=== PATIENT | female | born 1960 | race Caucasian/White ===

== ENCOUNTER 2016-05-24 19:28 | Emergency (ER) | payer MEDICAID ==
[~2016-05-24 19:28] MED LIST: ALBU1AER INH; ASPI81 PO; BENZ1TAB PO; BLOOD GLUCOSE T1 TES; BUSP15TA PO; ENAL10TA PO; FENO50TA PO; GABA600T PO; GLUC1KIT IM; HYDR50 PO; LANTUS2P SQ; LEXA20TA PO; MIRTA15 PO; NOVOLOGP2 SQ; PRAV80TA2 PO; PROC1CRE TOPICAL; ROBA750T PO; TOPA100T11 PO
[2016-05-24 19:31] VITALS: BP 149/114; PULSE 100; RESP 18; O2SAT 96
[2016-05-24] MEDS ORDERED: SODIUM CHLOR 0.9% 1000 ML INJ 1,000 ML IV ONE ×2 (19:34→20:04)
[2016-05-24 19:40] VITALS: RESP 18; O2SAT 95
[2016-05-24] MEDS ORDERED: SODIUM CHLORIDE 0.9% FLUSH 5 ML FLUSH IVF PRN (19:45)
--- NOTE | 2016-05-24 19:46 | PD ---
HPI Chief Complaint: Diabetic Time Seen by Provider: 19:34 Travel History International Travel<30 days: No Contact w/Intl Traveler<30days: No Traveled to known affect area: No History of Present Illness HPI 56-year-old female with history of insulin-dependent diabetes, CAD, brought in by EMS from home for evaluation of elevated blood sugar and feeling dizzy. Symptoms started this evening. The patient reports compliance with her insulin. She feels nauseous and is having some abdominal bloating and epigastric abdominal discomfort. No chest pain or dyspnea. No fevers or chills. No vomiting. PFSH Past Medical History Hx Anticoagulant Therapy: Yes (aspirin) ADD: Yes ADHD: Yes Arthritis: Yes Asthma: No Autoimmune Disease: Yes (FIBROMYALGIA) Bipolar Disorder: Yes Anxiety: Yes (ACUTE ) Depression: Yes (DEPRESSION) Heart Rhythm Problems: No Cardiac Catheterization: Yes (No stents) Cardiovascular Problems: Yes (history atrial flutter) High Cholesterol: Yes Chemotherapy: No Chest Pain: No Congestive Heart Failure: No COPD: No Cerebrovascular Accident: No Coronary Artery Disease: Yes Diabetes: Yes Patient Takes Glucophage: No Diminished Hearing: No Endocrine: Yes Fibromyalgia: Yes Gastrointestinal Disorders: No GERD: No Genitourinary: No Headaches: Yes Hepatitis: Yes (HEP B) Hiatal Hernia: No Hypertension: Yes Immune Disorder: No Implanted Vascular Access Dvce: No Insomnia: Yes Musculoskeletal: Yes Neurologic: Yes (DIABETIC NEUROPATHY) Reproductive: No Respiratory: Yes Integumentary: Yes (MRSA - 2010) Immunizations Current: Yes Migraines: Yes Myocardial Infarction: Yes Pancreatitis: Yes (EARLY ) Radiation Therapy: No Renal Failure: No Seizures: Yes Sleep Apnea: No Thyroid Disease: No Triglycerides - High: Yes Ulcer: No PNEUMOCCOCAL Vaccine (Year): 1 ?: Not Menopausal: Yes : 5 Para: 4 Miscarriage: 1 : 0 Tubal Ligation: Yes Past Surgical History Abdominal Surgery: No AICD: No Arteriovenous Shunt: No Body Medical Devices: HARDWARE IN NECK Cardiac Surgery: No Coronary Artery Bypass Graft: No Ear Surgery: No Endocrine Surgery: No Eye Surgery: No Genitourinary Surgery: No Gynecologic Surgery: Yes (LEEP - HPV POSITIVE. FIBROID REMOVAL) Insulin Pump: No Joint Replacement: No Neurologic Surgery: Yes (C5 AND C6 FUSION) Oral Surgery: No Pacemaker: No Thoracic Surgery: No Tonsillectomy: Yes Other Surgery: Yes (vertebrae) Social History Alcohol Use: Yes Tobacco Use: Yes (trying to quit) Substance Use: No Allergies-Medications (Allergen,Severity, Reaction): Coded Allergies: Penicillin (Verified Allergy, Severe, HIVES, 05/24/16) *MDRO Multi-Drug Resistant Organism (Verified Allergy, Unknown, 05/24/16) MRSA Reported Meds & Prescriptions Reported Meds & Active Scripts Active Blood Glucose Test Strips 1 Franny Franny 1 Ea .ROUTE DIRECTED Test sugar 4 times a day Mirtazapine 15 Mg Tab 15 Mg PO HS Glucagon Emergency Inj Kit (Glucagon (Rdna) Inj Kit) 1 Mg Kit 1 Mg IM ONCE PRN Enalapril (Enalapril Maleate) 10 Mg Tab 10 Mg PO DAILY Robaxin (Methocarbamol) 750 Mg Tab 1,500 Mg PO TID Reported Acyclovir 800 Mg Tab 800 Mg PO DIRECTED Lantus Inj (Insulin Glargine) 1,000 Unit/10 Ml Vial 35 Units SQ Lantus Inj (Insulin Glargine) 1,000 Unit/10 Ml Vial 30 Units SQ AM Novolog Inj (Insulin Aspart) 1,000 Unit/10 Ml Vial 0 SQ DIRECTED Sliding Scale as directed. Latuda (Lurasidone) 80 Mg Tab 80 Mg PO DAILY Tizanidine (Tizanidine HCl) 2 Mg Cap 2 Mg PO TID Aspirin 81 Mg Chew 81 Mg CHEW BID Benztropine (Benztropine Mesylate) 1 Mg Tab 1 Mg PO BID Pravastatin 80 Mg Tab 80 Mg PO DAILY Gabapentin 600 Mg Tab 600 Mg PO TID Topamax (Topiramate) 100 Mg Tab 100 Mg PO BID Tricor (Fenofibrate) 145 Mg Tab 145 Mg PO DAILY Takw with food. Lexapro (Escitalopram Oxalate) 20 Mg Tab 20 Mg PO DAILY Buspar (Buspirone HCl) 15 Mg Tab 15 Mg PO BID Review of Systems Except as stated in HPI: all other systems reviewed are Neg Physical Exam Narrative GENERAL: Well-developed, well-nourished, comfortable, no acute distress. SKIN: Warm and dry. HEAD: Atraumatic. Normocephalic. EYES: Pupils equal and round. No scleral icterus. No injection or drainage. ENT: Mucous membranes pink and dry. NECK: Trachea midline. No JVD. CARDIOVASCULAR: Regular rate and rhythm. RESPIRATORY: No accessory muscle use. Clear to auscultation. Breath sounds equal bilaterally. GASTROINTESTINAL: Abdomen soft, mildly distended, moderate epigastric tenderness , no peritoneal signs. MUSCULOSKELETAL: No obvious deformities. No clubbing. No cyanosis. No edema. NEUROLOGICAL: Awake and alert. No obvious cranial nerve deficits. Motor grossly within normal limits. Normal speech. PSYCHIATRIC: Appropriate mood and affect; insight and judgment normal. Data Data Last Documented VS Vital Signs Date Time Temp Pulse Resp B/P Pulse Ox O2 Delivery O2 Flow Rate FiO2 05/24/16 19:46 18 96 Room Air 05/24/16 19:31 100 149/114 Orders Electrocardiogram (05/24/16 19:34) Complete Blood Count With Diff (05/24/16 19:34) Comprehensive Metabolic Panel (05/24/16 19:34) Beta Hydroxybutyrate (Acetone) (05/24/16 19:34) Urinalysis - C+S If Indicated (05/24/16 19:34) Ecg Monitoring (05/24/16 19:34) Iv Access Insert/Monitor (05/24/16 19:34) Oximetry (05/24/16 19:34) NPO (05/24/16 19:34) Sodium Chlor 0.9% 1000 Ml Inj (Ns 1000 M (05/24/16 19:34) Sodium Chlor 0.9% 1000 Ml Inj (Ns 1000 M (05/24/16 20:04) Sodium Chloride 0.9% Flush (Ns Flush) (05/24/16 19:45) Lipase (05/24/16 19:41) Ckmb (Isoenzyme) Profile (05/24/16 19:41) Troponin I (05/24/16 19:41) Blood Gas Venous (Vbg) (05/24/16 19:42) Ondansetron Inj (Zofran Inj) (05/24/16 21:15) Insulin Human Regular Inj (Novolin R Inj (05/24/16 21:30) Labs Laboratory Tests Test 05/24/16 05/24/16 20:15 20:55 White Blood Count 7.1 TH/MM3 Red Blood Count 5.13 MIL/MM3 Hemoglobin 14.1 GM/DL Hematocrit 41.6 % Mean Corpuscular Volume 81.1 FL Mean Corpuscular Hemoglobin 27.5 PG Mean Corpuscular Hemoglobin 33.9 % Concent Red Cell Distribution Width 13.4 % Platelet Count 237 TH/MM3 Mean Platelet Volume 8.9 FL Neutrophils (%) (Auto) 62.3 % Lymphocytes (%) (Auto) 29.8 % Monocytes (%) (Auto) 5.6 % Eosinophils (%) (Auto) 1.7 % Basophils (%) (Auto) 0.6 % Neutrophils # (Auto) 4.4 TH/MM3 Lymphocytes # (Auto) 2.1 TH/MM3 Monocytes # (Auto) 0.4 TH/MM3 Eosinophils # (Auto) 0.1 TH/MM3 Basophils # (Auto) 0.0 TH/MM3 CBC Comment DIFF FINAL Differential Comment Urine Color LIGHT-YELLOW Urine Turbidity CLEAR Urine pH 5.0 Urine Specific [place] 1.024 Urine Protein NEG mg/dL Urine Glucose (UA) 1000 mg/dL Urine Ketones NEG mg/dL Urine Occult Blood TRACE Urine Nitrite NEG Urine Bilirubin NEG Urine Urobilinogen LESS THAN 2.0 MG/DL Urine Leukocyte Esterase TRACE Urine RBC 5 /hpf Urine WBC 1 /hpf Urine Squamous Epithelial <1 /hpf Cells Urine Mucus FEW /lpf Microscopic Urinalysis Comment CULT NOT INDICATED Sodium Level 133 MEQ/L Potassium Level 4.1 MEQ/L Chloride Level 97 MEQ/L Carbon Dioxide Level 25.1 MEQ/L Anion Gap 11 MEQ/L Blood Urea Nitrogen 18 MG/DL Creatinine 1.20 MG/DL Estimat Glomerular Filtration 46 ML/MIN Rate Random Glucose 353 MG/DL Calcium Level 9.3 MG/DL Total Bilirubin 0.2 MG/DL Aspartate Amino Transf 31 U/L (AST/SGOT) Alanine Aminotransferase 64 U/L (ALT/SGPT) Alkaline Phosphatase 122 U/L Total Creatine Kinase 98 U/L Troponin I LESS THAN 0.02 NG/ML Total Protein 8.1 GM/DL Albumin 4.2 GM/DL Lipase 243 U/L B-Hydroxybutyrate 0.14 MMOL/L Blood Gas Puncture Site Blood Gas Patient Temperature 98.6 Venous Blood pH 7.38 Venous Blood Partial Pressure 39 mmHg CO2 Venous Blood Partial Pressure 57 mmHg O2 Venous Blood HCO3 23 mmol/L Venous Blood Oxygen Saturation 85 % Venous Blood Oxygen Content 13.6 Vol % Venous Blood Base Excess -1.5 mmol/L MDM Medical Decision Making Medical Screen Exam Complete: Yes Emergency Medical Condition: Yes Medical Record Reviewed: Yes Interpretation(s) EKG: Sinus, rate 99, normal axis, normal intervals, no acute ischemic abnormality. Differential Diagnosis DKA, hyperglycemia, pancreatitis, gastritis, hepatobiliary disease Narrative Course Initial vital signs show heart rate 100 which improved to 88 after 2 L of normal saline IV, blood pressure 149/114, pulse ox 96% on room air. CBC is unremarkable. CMP is unremarkable. Beta hydroxybutyrate is 0.14. Cardiac enzymes are negative. Lipase is 243. Venous pH is 7.38. UA shows 1000 glucose, trace occult blood, trace site esterase, negative for ketones, not suggestive of UTI. The patient is not in DKA. Patient was given 2 L normal saline IV and IV Zofran. Repeat fingerstick is 211. Patient is feeling much better. She is stable for discharge home with outpatient follow-up with her primary care physician this week. She was informed on when to return to the emergency department patient verbalizes understanding and agreement with plan. Diagnosis Primary Impression: Hyperglycemia Cedric Brennan MD May 24, 2016 19:46
[2016-05-24] MEDS ORDERED: ASPI81CH CHEW (19:56)
[2016-05-24] MEDS ORDERED: LURA80 PO (20:00)
[2016-05-24] MEDS ORDERED: LANTUS2P SQ ×2 (20:00)
[2016-05-24] MEDS ORDERED: ACYC800T PO (20:00)
[2016-05-24] MEDS ORDERED: NOVOLOGP2 SQ (20:00)
[2016-05-24] MEDS ORDERED: TIZA2CAP3 PO (20:00)
[2016-05-24 20:51] LABS: AUTOMATED NEUTROPHIL # 4.4 TH/MM3 (1.8-7.7); BASOPHIL % 0.6 % (0.0-2.0); EOSINOPHIL # 0.1 TH/MM3 (0-0.4); EOSINOPHIL % 1.7 % (0.0-4.0); HEMATOCRIT 41.6 % (35.0-46.0); HEMO FLAGS DIFF FINAL; LYMPH % 29.8 % (9.0-44.0); LYMPHOCYTE # 2.1 TH/MM3 (1.0-4.8); MEAN CELL VOLUME 81.1 FL (80.0-100.0); MEAN CORPUSCULAR HEMOGLOBIN 27.5 PG (27.0-34.0); MEAN CORPUSCULAR HGB CONC 33.9 % (32.0-36.0); MONO % 5.6 % (0.0-8.0); NEUT % 62.3 % (16.0-70.0); PLATELET COUNT 237 TH/MM3 (150-450); RED BLOOD COUNT 5.13 MIL/MM3 (4.00-5.30); RED CELL DISTRIBUTION WIDTH 13.4 % (11.6-17.2); WHITE BLOOD COUNT 7.1 TH/MM3 (4.0-11.0)
[2016-05-24 20:55] LABS: BLOOD, URINE TRACE (NEG); COMMENT (UR) CULT NOT INDICATED; CULTURE IF INDICATED CULT NOT INDICATED; GLUCOSE,URINE 1000 mg/dL (NEG); KETONE, URINE NEG (NEG); MUCUS URINE FEW /lpf (OCC); NITRITE,URINE NEG (NEG); SQUAMOUS EPITHELIAL CELL URINE <1 /hpf (0-5); URINE COLOR LIGHT-YELLOW (YELLW/STRAW)
[2016-05-24] MEDS ORDERED: ONDANSETRON HCL 4 MG/2 ML VIAL IV PUSH ONE (21:15)
[2016-05-24 21:16] LABS: BLOOD GAS VENOUS BASE EXCESS -1.5 mmol/L (-2-2); BLOOD GAS VENOUS HCO3 23 mmol/L (22-26); BLOOD GAS VENOUS O2 CONTENT 13.6 Vol % (9.0-17.0); BLOOD GAS VENOUS O2 HGB SAT 85 % (70-76); BLOOD GAS VENOUS PCO2 39 mmHg (44-48); BLOOD GAS VENOUS PO2 57 mmHg (35-40); BLOOD GAS VENOUS pH 7.38 (7.360-7.400); CRITICAL VALUE NO; STAT NO; TEMP CORR TO 98.6
[2016-05-24 21:16] LABS: ANION GAP 11 MEQ/L (5-15); AST (GOT) 31 U/L (15-37); BICARBONATE 25.1 MEQ/L (21.0-32.0); BLOOD UREA NITROGEN 18 MG/DL (7-18); CHLORIDE 97 MEQ/L (98-107); GLOMERULAR FILTRATION RATE 46 ML/MIN (>89); POTASSIUM 4.1 MEQ/L (3.5-5.1); SODIUM (NA) 133 MEQ/L (136-145)
[2016-05-24 21:19] LABS: ALKALINE PHOSPHATASE 122 U/L (45-117); ALT (GPT) 64 U/L (10-53); BETA-HYDROXYBUTYRATE 0.14 MMOL/L (0.00-0.39); TOTAL BILIRUBIN ADULT 0.2 MG/DL (0.2-1.0)
[2016-05-24] MEDS ORDERED: INSULIN HUMAN REGULAR 1,000 UNITS/10 ML VIAL SQ ONE (21:30)
[2016-05-24 21:51] LABS: CREATINE KINASE 98 U/L (26-192)
--- NOTE | 2016-05-25 10:39 | EKG ---
Date Performed: 05/24/2016 Time Performed: 20:29:13 PTAGE: 56 years EKG: Sinus rhythm NORMAL ECG PREVIOUS TRACING : 01/23/2015 17.39 DOCTOR: Gavino Salazar Interpretating Date/Time 05/25/2016 10:38:22
[2016-06-06] MEDS ORDERED: NOVOLOGP2 SQ (17:44)
[2016-06-08] MEDS ORDERED: NOVOLOGP2 SQ (08:39)
[2016-06-15] MEDS ORDERED: ONETKIT11 (07:49)
[2016-06-17] MEDS ORDERED: TOPA100T11 PO (13:40)
[2016-06-24] MEDS ORDERED: ONETKIT9 (08:48)
[2016-06-24] MEDS ORDERED: ACYC400T PO (13:44)
[2016-07-15] MEDS ORDERED: TIZA2TAB PO (16:16)
[2016-07-15] MEDS ORDERED: LANTUS2P IM (16:17)
[2016-07-15] MEDS ORDERED: LAMO25CH CHEW (17:09)
[2016-07-18] MEDS ORDERED: NOVOLOGP2 SQ (16:34)
[2016-08-03] MEDS ORDERED: PRAV80TA2 PO (07:02)
[2016-08-03] MEDS ORDERED: ONETKIT9 (07:02)
[2016-08-03] MEDS ORDERED: BLOOD GLUCOSE T1 TES (07:20)
[2016-08-13] MEDS ORDERED: NAPH1DRO EACH EYE (08:09)
[2016-08-17] MEDS ORDERED: NOVOLOGP2 SQ (14:47)
[2016-08-30] MEDS ORDERED: TRIMSOL EACH EYE (07:58)
[2016-09-15] MEDS ORDERED: NOVOLOGP2 SQ (09:20)
[2016-09-15] MEDS ORDERED: LANTUS2P IM (09:20)
[2016-09-15] MEDS ORDERED: GABA600T PO (09:26)
== END 2016-05-24 22:57 | disposition home or self-care (01) ==
LOC: NEPC 19:28
DX: E11.65 Type 2 diabetes mellitus with hyperglycemia (principal); R42 Dizziness and giddiness; R11.0 Nausea; I10 Essential (primary) hypertension; Z72.0 Tobacco use; Z79.4 Long term (current) use of insulin
CPT/HCPCS: 80053; 81001; 82010; 82550; 82805; 83690; 84484; 85025; 93005; 96361; 96374; 99284; J2405; J7030

== ENCOUNTER 2016-06-13 20:18 | Emergency (ER) | payer MEDICAID ==
[~2016-06-13] VITALS: Ht 162.6 cm; Wt 66.0 kg
[~2016-06-13 20:18] MED LIST changes: +ACYC800T PO; -ALBU1AER INH; -ASPI81 PO; +ASPI81CH CHEW; -HYDR50 PO; +LURA80 PO; -PROC1CRE TOPICAL; +TIZA2CAP3 PO
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
[2016-06-13] MEDS ORDERED: SODIUM CHLORIDE 0.9% FLUSH 5 ML FLUSH IVF PRN (20:30)
[2016-06-13] MEDS ORDERED: INSULIN HUMAN REGULAR 1,000 UNITS/10 ML VIAL IV PUSH ONE (20:30)
[2016-06-13] MEDS ORDERED: HYDR50CA PO (20:32)
[2016-06-13] MEDS ORDERED: BUSP15TA PO (20:32)
[2016-06-13 20:48] VITALS: BP 154/71; PULSE 89; RESP 18; TEMP 97.8; O2SAT 98
[2016-06-13] MEDS ORDERED: SODIUM CHLOR 0.9% 1000 ML INJ 1,000 ML IV ONE (20:52)
[2016-06-13 21:02] VITALS: BP 154/71; PULSE 89; RESP 20; TEMP 97.8; O2SAT 98
--- NOTE | 2016-06-13 21:05 | RADHPO ---
EXAM DATE/TIME: 06/13/2016 20:42 [facility] COMPARISON: CHEST SINGLE AP, January 23, 2015, 17:21. INDICATIONS : Cough. MEDICAL HISTORY : Diabetes mellitus type II. Emphysema. SURGICAL HISTORY : None. ENCOUNTER: Initial ACUITY: 1 day PAIN SCORE: 3/10 LOCATION: Bilateral upper chest FINDINGS: A single view of the chest demonstrates the lungs to be symmetrically aerated without evidence of mas s, infiltrate or effusion. The cardiomediastinal contours are unremarkable. Osseous structures are intact. CONCLUSION: No acute disease. No significant change has occurred. Vitaly Bradford MD on June 13, 2016 at 21:04 Board Certified Radiologist. This report was verified electronically.
[2016-06-13 21:06] LABS: AUTOMATED NEUTROPHIL # 4.7 TH/MM3 (1.8-7.7); BASOPHIL % 0.2 % (0.0-2.0); EOSINOPHIL # 0.1 TH/MM3 (0-0.4); EOSINOPHIL % 0.9 % (0.0-4.0); HEMATOCRIT 38.8 % (35.0-46.0); HEMO FLAGS DIFF FINAL; LYMPH % 26.6 % (9.0-44.0); LYMPHOCYTE # 1.9 TH/MM3 (1.0-4.8); MEAN CELL VOLUME 81.5 FL (80.0-100.0); MEAN CORPUSCULAR HEMOGLOBIN 27.7 PG (27.0-34.0); MONO % 7.9 % (0.0-8.0); NEUT % 64.4 % (16.0-70.0); PLATELET COUNT 222 TH/MM3 (150-450); RED BLOOD COUNT 4.77 MIL/MM3 (4.00-5.30); RED CELL DISTRIBUTION WIDTH 12.8 % (11.6-17.2); WHITE BLOOD COUNT 7.3 TH/MM3 (4.0-11.0)
[2016-06-13 21:08] LABS: BLOOD, URINE NEG (NEG); KETONE, URINE NEG (NEG); NITRITE,URINE NEG (NEG)
[2016-06-13 21:12] LABS: GLUCOSE,URINE 1000 OR GREATER mg/dL (NEG)
[2016-06-13 21:14] LABS: CHLORIDE 103 MEQ/L (98-107); SODIUM (NA) 142 MEQ/L (136-145)
[2016-06-13 21:16] LABS: METHOD OF COLLECTION VOIDED; URINE COLOR YELLOW (YELLW/STRAW)
[2016-06-13 21:17] LABS: ANION GAP 10 MEQ/L (5-15); BICARBONATE 29.4 MEQ/L (21.0-32.0); BLOOD UREA NITROGEN 25 MG/DL (7-18); COMMENT (UR) CULT NOT INDICATED; CULTURE IF INDICATED CULT NOT INDICATED; SQUAMOUS EPITHELIAL CELL URINE 0-5 /hpf (0-5)
[2016-06-13 21:19] LABS: WBC, URINE 0-2 /hpf (0-5)
[2016-06-13 21:20] LABS: ALT (GPT) 35 U/L (10-53); AST (GOT) 11 U/L (15-37); GLOMERULAR FILTRATION RATE 63 ML/MIN (>89)
[2016-06-13 21:22] LABS: TOTAL BILIRUBIN ADULT 0.4 MG/DL (0.2-1.0)
[2016-06-13 21:23] LABS: ALKALINE PHOSPHATASE 79 U/L (45-117)
[2016-06-13 22:10] VITALS: BP 150/72; PULSE 84; RESP 20; O2SAT 95
[2016-06-13 23:21] VITALS: BP 148/78
--- NOTE | 2016-06-14 11:19 | EKG ---
Date Performed: 06/13/2016 Time Performed: 20:40:16 PTAGE: 56 years EKG: Sinus rhythm Normal ECG PREVIOUS TRACING : 05/24/2016 20.29 DOCTOR: Matheus Maldonado Interpretating Date/Time 06/14/2016 11:18:07
[2016-06-15] MEDS ORDERED: ONETKIT11 (07:49)
[2016-06-17] MEDS ORDERED: TOPA100T11 PO (13:40)
[2016-06-24] MEDS ORDERED: ONETKIT9 (08:48)
[2016-06-24] MEDS ORDERED: ACYC400T PO (13:44)
[2016-07-15] MEDS ORDERED: TIZA2TAB PO (16:16)
[2016-07-15] MEDS ORDERED: LANTUS2P IM (16:17)
[2016-07-15] MEDS ORDERED: LAMO25CH CHEW (17:09)
[2016-07-18] MEDS ORDERED: NOVOLOGP2 SQ (16:34)
[2016-08-03] MEDS ORDERED: ONETKIT9 (07:02)
[2016-08-03] MEDS ORDERED: PRAV80TA2 PO (07:02)
[2016-08-03] MEDS ORDERED: BLOOD GLUCOSE T1 TES (07:20)
[2016-08-13] MEDS ORDERED: NAPH1DRO EACH EYE (08:09)
[2016-08-17] MEDS ORDERED: NOVOLOGP2 SQ (14:47)
[2016-08-30] MEDS ORDERED: TRIMSOL EACH EYE (07:58)
[2016-09-15] MEDS ORDERED: LANTUS2P IM (09:20)
[2016-09-15] MEDS ORDERED: NOVOLOGP2 SQ (09:20)
[2016-09-15] MEDS ORDERED: GABA600T PO (09:26)
== END 2016-06-13 23:30 | disposition home or self-care (01) ==
LOC: PHED 20:18
DX: E10.65 Type 1 diabetes mellitus with hyperglycemia (principal); I25.2 Old myocardial infarction; I10 Essential (primary) hypertension; M79.7 Fibromyalgia; I25.10 Atherosclerotic heart disease of native coronary artery without angina pectoris; F90.9 Attention-deficit hyperactivity disorder, unspecified type; Z79.4 Long term (current) use of insulin; Z79.82 Long term (current) use of aspirin
CPT/HCPCS: 71010; 80053; 81001; 84484; 85025; 93005; 96361; 96374; 99285; J1815; J7030

== ENCOUNTER 2016-10-02 13:06 | Emergency (ER) | payer MEDICAID ==
[~2016-10-02] VITALS: Ht 167.6 cm; Wt 65.0 kg
[~2016-10-02 13:06] MED LIST changes: +ACYC400T PO; -ACYC800T PO; -ASPI81CH CHEW; +ASPI81CH PO; +HYDR50CA PO; +LANTUS2P IM; -LANTUS2P SQ; -LEXA20TA PO; +NAPH1DRO EACH EYE; +ONETKIT9; -ROBA750T PO; -TIZA2CAP3 PO; +TIZA2TAB PO
[2016-10-02 13:15] VITALS: BP 160/75; PULSE 108; RESP 18; TEMP 98; O2SAT 97
[2016-10-02] MEDS ORDERED: SODIUM CHLORIDE 0.9% FLUSH 10 ML FLUSH IVF PRN (13:15)
[2016-10-02 13:19] VITALS: O2SAT 97
--- NOTE | 2016-10-02 13:21 | PD ---
HPI Chief Complaint: Diabetic Time Seen by Provider: 13:17 Travel History International Travel<30 days: No Contact w/Intl Traveler<30days: No Traveled to known affect area: No History of Present Illness HPI 56-year-old female presents to the emergency department via EMS for evaluation after she had a hypoglycemic episode. Patient states she is type I diabetic. She took 40 units of Lantus this morning and then took 7 units of NovoLog. However, she was running late to temple that did not eat. While at [place], she felt hypoglycemic. She denies any syncope. Her blood sugar when EMS arrived was 62. They gave her D10. She states she was out in the sun for approximately 10 minutes and feels like she might be dehydrated as well. She reports weakness. She does say she had an episode of chest pain when she felt hypoglycemic. She states this typically occurs for her when she is hypoglycemic. Patient also states that she felt anxious. PFSH Past Medical History Hx Anticoagulant Therapy: Yes (aspirin) ADD: Yes ADHD: Yes Arthritis: Yes Asthma: No Autoimmune Disease: Yes (FIBROMYALGIA) Bipolar Disorder: Yes Anxiety: Yes (ACUTE ) Depression: Yes (DEPRESSION) Heart Rhythm Problems: No Cardiac Catheterization: Yes (No stents) Cardiovascular Problems: Yes (htn) High Cholesterol: Yes Chemotherapy: No Chest Pain: No Congestive Heart Failure: No COPD: Yes Cerebrovascular Accident: No Coronary Artery Disease: Yes Diabetes: Yes (type 1) Diminished Hearing: No Endocrine: Yes Fibromyalgia: Yes Gastrointestinal Disorders: No GERD: No Genitourinary: No Headaches: Yes Hepatitis: Yes (HEP B) Hiatal Hernia: No Hypertension: Yes Immune Disorder: No Implanted Vascular Access Dvce: No Insomnia: Yes Musculoskeletal: Yes Neurologic: Yes (DIABETIC NEUROPATHY) Reproductive: No Respiratory: Yes (copd) Integumentary: Yes (MRSA - 2010) Immunizations Current: Yes Migraines: Yes Myocardial Infarction: Yes Pancreatitis: Yes (EARLY ) Radiation Therapy: No Renal Failure: No Seizures: Yes Sleep Apnea: No Thyroid Disease: No Triglycerides - High: Yes Ulcer: No PNEUMOCCOCAL Vaccine (Year): 1 ?: Not Menopausal: Yes : 5 Para: 4 Miscarriage: 1 : 0 Tubal Ligation: Yes Past Surgical History Abdominal Surgery: No AICD: No Arteriovenous Shunt: No Body Medical Devices: HARDWARE IN NECK Cardiac Surgery: No Coronary Artery Bypass Graft: No Ear Surgery: No Endocrine Surgery: No Eye Surgery: No Genitourinary Surgery: No Gynecologic Surgery: Yes (LEEP - HPV POSITIVE. FIBROID REMOVAL) Insulin Pump: No Joint Replacement: No Neurologic Surgery: Yes (C5 AND C6 FUSION) Oral Surgery: No Pacemaker: No Thoracic Surgery: No Tonsillectomy: Yes Other Surgery: Yes (vertebrae) Social History Alcohol Use: Yes Tobacco Use: Yes (trying to quit) Substance Use: No Allergies-Medications (Allergen,Severity, Reaction): Coded Allergies: Penicillin (Verified Allergy, Severe, HIVES, 09/15/16) *MDRO Multi-Drug Resistant Organism (Verified Allergy, Unknown, 09/15/16) MRSA Reported Meds & Prescriptions Reported Meds & Active Scripts Active Gabapentin 600 Mg Tab 600 Mg PO TID Novolog Inj (Insulin Aspart) 1,000 Unit/10 Ml Vial 0 SQ DIRECTED Sliding Scale as directed. Pravastatin 80 Mg Tab 80 Mg PO DAILY Tizanidine (Tizanidine HCl) 2 Mg Tab 2 Mg PO BID Acyclovir 400 Mg Tab 400 Mg PO TID Take one tablet 3 times a day until completion. Total course = 10 days Topamax (Topiramate) 100 Mg Tab 100 Mg PO BID Mirtazapine 15 Mg Tab 15 Mg PO HS Glucagon Emergency Inj Kit (Glucagon (Rdna) Inj Kit) 1 Mg Kit 1 Mg IM ONCE PRN Enalapril (Enalapril Maleate) 10 Mg Tab 10 Mg PO DAILY Reported Lantus Inj (Insulin Glargine) 1,000 Unit/10 Ml Vial 40 Units SQ DAILY Benztropine (Benztropine Mesylate) 0.5 Mg Tab 1 Mg PO BID Hydroxyzine Pamoate 50 Mg Cap 50 Mg PO TID Buspirone (Buspirone HCl) 15 Mg Tab 15 Mg PO BID Latuda (Lurasidone) 80 Mg Tab 80 Mg PO DAILY Aspirin 81 Mg Chew 81 Mg PO BID Tricor (Fenofibrate) 145 Mg Tab 145 Mg PO DAILY Takw with food. Review of Systems Except as stated in HPI: all other systems reviewed are Neg Physical Exam Narrative GENERAL: Well-nourished, well-developed female patient, ambulatory and in no acute distress. Afebrile. SKIN: Focused skin assessment warm/dry. HEAD: Normocephalic. Atraumatic. EYES: No scleral icterus. No injection or drainage. NECK: Supple, trachea midline. No JVD or lymphadenopathy. CARDIOVASCULAR: Regular rate and rhythm without murmurs, gallops, or rubs. RESPIRATORY: Breath sounds equal bilaterally. No accessory muscle use. Lungs sounds are clear to auscultation. GASTROINTESTINAL: Abdomen soft, non-tender, nondistended. MUSCULOSKELETAL: No cyanosis, or edema. BACK: Nontender without obvious deformity. No CVA tenderness. Data Data Last Documented VS Vital Signs Date Time Temp Pulse Resp B/P Pulse Ox O2 Delivery O2 Flow Rate FiO2 10/02/16 13:21 107 18 97 Nasal Cannula 2 10/02/16 13:15 98.0 160/75 Orders Electrocardiogram (10/02/16 ) Basic Metabolic Panel (Bmp) (10/02/16 13:15) Ckmb (Isoenzyme) Profile (10/02/16 13:15) Complete Blood Count With Diff (10/02/16 13:15) Magnesium (Mg) (10/02/16 13:15) Troponin I (10/02/16 13:15) Chest, Single Ap (10/02/16 13:15) Ecg Monitoring (10/02/16 13:15) Bilateral Bp Monitoring (10/02/16 13:15) Iv Access Insert/Monitor (10/02/16 13:15) Oximetry (10/02/16 13:15) Oxygen Administration (10/02/16 13:15) Sodium Chloride 0.9% Flush (Ns Flush) (10/02/16 13:15) Diet Diabetic (10/02/16 Lunch) Isolation (10/02/16 13:22) Labs Laboratory Tests Test 10/02/16 13:35 White Blood Count 8.4 TH/MM3 Red Blood Count 5.14 MIL/MM3 Hemoglobin 13.8 GM/DL Hematocrit 42.0 % Mean Corpuscular Volume 81.7 FL Mean Corpuscular Hemoglobin 26.8 PG Mean Corpuscular Hemoglobin 32.8 % Concent Red Cell Distribution Width 13.6 % Platelet Count 204 TH/MM3 Mean Platelet Volume 9.0 FL Neutrophils (%) (Auto) 69.1 % Lymphocytes (%) (Auto) 20.5 % Monocytes (%) (Auto) 9.1 % Eosinophils (%) (Auto) 0.9 % Basophils (%) (Auto) 0.4 % Neutrophils # (Auto) 5.8 TH/MM3 Lymphocytes # (Auto) 1.7 TH/MM3 Monocytes # (Auto) 0.8 TH/MM3 Eosinophils # (Auto) 0.1 TH/MM3 Basophils # (Auto) 0.0 TH/MM3 CBC Comment DIFF FINAL Differential Comment Sodium Level 136 MEQ/L Potassium Level 3.7 MEQ/L Chloride Level 99 MEQ/L Carbon Dioxide Level 29.5 MEQ/L Anion Gap 8 MEQ/L Blood Urea Nitrogen 21 MG/DL Creatinine 1.00 MG/DL Estimat Glomerular Filtration 57 ML/MIN Rate Random Glucose 234 MG/DL Calcium Level 9.4 MG/DL Magnesium Level 1.6 MG/DL Total Creatine Kinase 52 U/L Troponin I LESS THAN 0.02 NG/ML MDM Medical Decision Making Medical Screen Exam Complete: Yes Emergency Medical Condition: Yes Medical Record Reviewed: Yes Interpretation(s) chest x-ray = CONCLUSION: No acute cardiopulmonary process. Differential Diagnosis Hypoglycemia versus electrolyte abnormality versus kidney injury versus ACS Narrative Course 56-year-old female presents to the emergency department via EMS for evaluation of hypoglycemia. Blood glucose on arrival is 227. EKG shows sinus tachycardia , heart rate 111, no acute ST changes. CBC, BMP, CK, troponin, magnesium, chest x-ray ordered and pending. Diabetic diet is ordered. CBC shows no acute abnormality. BMP shows no acute abnormality. CK is 52. Troponin is less than 0.02. Magnesium is 1.6. Chest x-ray shows no acute cardiopulmonary process. Patient is given tray in the emergency department. Repeat blood sugar is 240. Upon reevaluation, patient states she feels much better. She would like to go home. Patient instructed to monitor her blood sugar closely. She verbalizes agreement and understanding. She is to return for any acute worsening of symptoms. My attending physician, Dr. Hand, is aware of all findings and agrees with plan and disposition. The patient was discharged in stable condition with instructions, including return instructions and follow up instructions. Diagnosis Primary Impression: Hypoglycemia due to insulin Referrals: Primary Care Physician call for appointment Patient Instructions: General Instructions, Hypoglycemia in a Person with Diabetes (ED) Additional Instructions: Monitor your blood glucose closely. Make sure you eat after receiving insulin. Follow up with your primary care physician. Return to the emergency department for any acute, worsening of symptoms. Med/Other Pt SpecificInfo: No Change to Meds Disposition: 01 DISCHARGE HOME Condition: Stable Sonali Ochoa Oct 02, 2016 13:21
[2016-10-02] MEDS ORDERED: BENZ0.5T PO (13:42)
[2016-10-02] MEDS ORDERED: LANTUS2P SQ (13:42)
[2016-10-02 14:00] LABS: AUTOMATED NEUTROPHIL # 5.8 TH/MM3 (1.8-7.7); BASOPHIL % 0.4 % (0.0-2.0); EOSINOPHIL # 0.1 TH/MM3 (0-0.4); EOSINOPHIL % 0.9 % (0.0-4.0); HEMO FLAGS DIFF FINAL; LYMPH % 20.5 % (9.0-44.0); LYMPHOCYTE # 1.7 TH/MM3 (1.0-4.8); MEAN CELL VOLUME 81.7 FL (80.0-100.0); MEAN CORPUSCULAR HEMOGLOBIN 26.8 PG (27.0-34.0); MEAN CORPUSCULAR HGB CONC 32.8 % (32.0-36.0); MONO % 9.1 % (0.0-8.0); NEUT % 69.1 % (16.0-70.0); PLATELET COUNT 204 TH/MM3 (150-450); RED BLOOD COUNT 5.14 MIL/MM3 (4.00-5.30); RED CELL DISTRIBUTION WIDTH 13.6 % (11.6-17.2); WHITE BLOOD COUNT 8.4 TH/MM3 (4.0-11.0)
--- NOTE | 2016-10-02 14:00 | RADRPT ---
EXAM DATE/TIME: 10/02/2016 13:18 [facility] COMPARISON: CHEST SINGLE AP, June 13, 2016, 20:42. INDICATIONS : Chest pain MEDICAL HISTORY : Diabetes mellitus type II. Emphysema. SURGICAL HISTORY : None. ENCOUNTER: Initial ACUITY: 2 days PAIN SCORE: 6/10 LOCATION: Bilateral chest FINDINGS: A single view of the chest demonstrates the lungs to be symmetrically aerated without evidence of mas s, infiltrate or effusion. The cardiomediastinal contours are unremarkable. Osseous structures are intact. CONCLUSION: No acute cardiopulmonary process. Parrish Antony MD on October 02, 2016 at 13:58 Board Certified Radiologist. This report was verified electronically.
[2016-10-02 14:19] LABS: ANION GAP 8 MEQ/L (5-15); BICARBONATE 29.5 MEQ/L (21.0-32.0); BLOOD UREA NITROGEN 21 MG/DL (7-18); CHLORIDE 99 MEQ/L (98-107); GLOMERULAR FILTRATION RATE 57 ML/MIN (>89); MAGNESIUM 1.6 MG/DL (1.5-2.5); POTASSIUM 3.7 MEQ/L (3.5-5.1); SODIUM (NA) 136 MEQ/L (136-145)
[2016-10-02 14:29] LABS: CREATINE KINASE 52 U/L (26-192)
--- NOTE | 2016-10-03 14:11 | EKG ---
Date Performed: 10/02/2016 Time Performed: 13:18:05 PTAGE: 56 years EKG: SINUS TACHYCARDIA ABNORMAL RHYTHM ECG Compared to PREVIOUS TRACING , the rate has increased significantly. PREVIOUS TRACING 06/13/2016 [id number] DOCTOR: Gaetano Jeffrey Interpretating Date/Time 10/03/2016 14:10:12
== END 2016-10-02 15:41 | disposition home or self-care (01) ==
LOC: NEPC 13:06
DX: E10.649 Type 1 diabetes mellitus with hypoglycemia without coma (principal); R00.0 Tachycardia, unspecified; R53.1 Weakness; M79.7 Fibromyalgia; I10 Essential (primary) hypertension; J44.9 Chronic obstructive pulmonary disease, unspecified; E10.40 Type 1 diabetes mellitus with diabetic neuropathy, unspecified; I25.10 Atherosclerotic heart disease of native coronary artery without angina pectoris; I25.2 Old myocardial infarction
CPT/HCPCS: 71010; 80048; 82550; 83735; 84484; 85025; 93005

== ENCOUNTER 2017-07-05 18:17 | Emergency (ER) | payer MEDICAID ==
[~2017-07-05] VITALS: Ht 165.1 cm; Wt 65.0 kg
[~2017-07-05 18:17] MED LIST changes: +ASPI-516 PO; -ASPI81CH PO; +BENZ0.5T PO; -BENZ1TAB PO; -BLOOD GLUCOSE T1 TES; -LANTUS2P IM; +LANTUS2P SQ; -NAPH1DRO EACH EYE; -ONETKIT9; +ONETTES4; -TOPA100T11 PO; +TOPI100 PO
[2017-07-05 18:33] VITALS: BP 140/64; PULSE 89; RESP 17; TEMP 98.5; O2SAT 99
[2017-07-05] MEDS ORDERED: TETANUS/DIPHTHERIA TOXOID ADULT 0.5 ML VIAL IM ONE (20:15)
[2017-07-05] MEDS ORDERED: METR-1 PO (20:17)
[2017-07-05] MEDS ORDERED: DOXY100C PO (20:17)
--- NOTE | 2017-07-05 20:33 | PD ---
HPI Chief Complaint: Bite or Sting Time Seen by Provider: 20:05 Travel History International Travel<30 days: No Contact w/Intl Traveler<30days: No Traveled to known affect area: No History of Present Illness HPI This patient complains of Bite and scratches. Duration 3 hours ago. She tried to help a stray cat that was struck by vehicle. Animal control was summoned. They have quarantine the animal. She is unsure of her last tetanus. She was bit in the right second finger. She has scratches on her abdomen left cheek and left arm. Symptom severity is mild. PFSH Past Medical History Hx Anticoagulant Therapy: Yes (ASA 325) ADD: Yes ADHD: Yes Arthritis: Yes Asthma: No Autoimmune Disease: Yes (FIBROMYALGIA) Bipolar Disorder: Yes Anxiety: Yes (ACUTE ) Depression: Yes (DEPRESSION) Heart Rhythm Problems: No Cardiac Catheterization: Yes (No stents) Cardiovascular Problems: Yes (htn) High Cholesterol: Yes Chemotherapy: No Chest Pain: No Congestive Heart Failure: No COPD: Yes Cerebrovascular Accident: No Coronary Artery Disease: Yes Diabetes: Yes (type 1) Patient Takes Glucophage: Yes Diminished Hearing: No Endocrine: Yes Fibromyalgia: Yes Gastrointestinal Disorders: No GERD: No Genitourinary: No Headaches: Yes Hepatitis: Yes (HEP B) Hiatal Hernia: No Hypertension: Yes Immune Disorder: No Implanted Vascular Access Dvce: No Insomnia: Yes Musculoskeletal: Yes Neurologic: Yes (DIABETIC NEUROPATHY) Reproductive: No Respiratory: Yes (copd) Integumentary: Yes (MRSA - 2010) Immunizations Current: Yes Migraines: Yes Myocardial Infarction: Yes Pancreatitis: Yes (EARLY ) Radiation Therapy: No Renal Failure: No Seizures: Yes Sleep Apnea: No Thyroid Disease: No Triglycerides - High: Yes Ulcer: No Tetanus Vaccination: < 5 Years Influenza Vaccination: Yes PNEUMOCCOCAL Vaccine (Year): 1 Menopausal: Yes : 5 Para: 4 Miscarriage: 1 : 0 Tubal Ligation: Yes Past Surgical History Abdominal Surgery: No AICD: No Arteriovenous Shunt: No Body Medical Devices: HARDWARE IN NECK Cardiac Surgery: No Coronary Artery Bypass Graft: No Ear Surgery: No Endocrine Surgery: No Eye Surgery: No Genitourinary Surgery: No Gynecologic Surgery: Yes (LEEP - HPV POSITIVE. FIBROID REMOVAL) Insulin Pump: No Joint Replacement: No Neurologic Surgery: Yes (C5 AND C6 FUSION) Oral Surgery: No Pacemaker: No Thoracic Surgery: No Tonsillectomy: Yes Other Surgery: Yes (vertebrae) Social History Alcohol Use: No Tobacco Use: No Substance Use: No Allergies-Medications (Allergen,Severity, Reaction): Coded Allergies: penicillin G (Unverified Allergy, Severe, HIVES, 07/05/17) *MDRO Multi-Drug Resistant Organism (Verified Allergy, Unknown, 07/05/17) MRSA Reported Meds & Prescriptions Reported Meds & Active Scripts Active Doxycycline Hyclate 100 Mg Cap 100 Mg PO BID Flagyl (Metronidazole) 500 Mg Tab 500 Mg PO TID Tizanidine (Tizanidine HCl) 2 Mg Tab 2 Mg PO BID Gabapentin 600 Mg Tab 600 Mg PO TID Onetouch Ultra Test Strips (Blood Glucose Test Strips) 1 Franny Franny Strip .ROUTE DIRECTED check sugar 4 times per day Enalapril (Enalapril Maleate) 10 Mg Tab 10 Mg PO DAILY Lantus Inj (Insulin Glargine) 1,000 Unit/10 Ml Vial 40 Units SQ DAILY 30 Days Tricor (Fenofibrate) 145 Mg Tab 145 Mg PO DAILY Takw with food. Novolog Inj (Insulin Aspart) 1,000 Unit/10 Ml Vial 0 SQ DIRECTED Sliding Scale as directed. Pravastatin 80 Mg Tab 80 Mg PO DAILY Acyclovir 400 Mg Tab 400 Mg PO TID Take one tablet 3 times a day until completion. Total course = 10 days Topamax (Topiramate) 100 Mg Tab 100 Mg PO BID Mirtazapine 15 Mg Tab 15 Mg PO HS Glucagon Emergency Inj Kit (Glucagon (Rdna) Inj Kit) 1 Mg Kit 1 Mg IM ONCE PRN Reported Benztropine (Benztropine Mesylate) 0.5 Mg Tab 1 Mg PO BID Hydroxyzine Pamoate 50 Mg Cap 50 Mg PO TID Buspirone (Buspirone HCl) 15 Mg Tab 15 Mg PO BID Latuda (Lurasidone) 80 Mg Tab 80 Mg PO DAILY Aspirin 81 Mg Chew 81 Mg PO BID Review of Systems General / Constitutional: No: Fever HENT: No: Headaches Cardiovascular: No: Chest Pain or Discomfort Respiratory: No: Cough Physical Exam Narrative Psych: Normal mood and affect. Normal insight and judgment. GASTROINTESTINAL: Abdomen soft, non-tender, nondistended. Positive bowel sounds. No hepato-splenomegaly, or palpable masses. No guarding. SKIN: Focused skin assessment reveals no rash or ulcers. Skin is warm and dry. Palpation shows no induration or nodules. She has some very minimal slight scratches to the left cheek left arm and torso. There are 2 tiny red dots on the right second finger. I do not see any evidence of actual puncture wound. Was not over the joint. Data Data Last Documented VS Vital Signs Date Time Temp Pulse Resp B/P (MAP) Pulse Ox O2 Delivery O2 Flow Rate FiO2 07/05/17 18:33 98.5 89 17 140/64 (89) 99 Orders Orders Tetanus/Diphtheria Tox Adult (Tetanus/Di (07/05/17 20:15) MDM Medical Decision Making Medical Screen Exam Complete: Yes Emergency Medical Condition: Yes Medical Record Reviewed: Yes Differential Diagnosis Cat bite, cat scratch, cellulitis Narrative Course Patient has penicillin allergy. I have written 5 days of doxycycline and Flagyl per up-to-date recommendations to prevent infection from cat bite given her type 1 diabetes. However the wound looks tiny and minimal. There is really nothing to clean out. Tetanus booster given Animal control will handle the rabies issue The patient was advised to follow up with their physician and return if they worsen. Diagnosis Primary Impression: Cat bite of finger Qualified Codes: S61.259A - Open bite of unspecified finger without damage to nail, initial encounter; W55.01XA - Bitten by cat, initial encounter Additional Impressions: Cat scratch of multiple sites Diabetes mellitus Qualified Codes: E10.9 - Type 1 diabetes mellitus without complications Additional Instructions: The patient was advised to follow up with their physician and return if they worsen. Med/Other Pt SpecificInfo: Prescription(s) given Scripts Doxycycline Hyclate (Doxycycline Hyclate) 100 Mg Cap 100 MG PO BID for Infection, #10 CAP 0 Refills Prov: Adalberto Russell MD 07/05/17 Metronidazole (Flagyl) 500 Mg Tab 500 MG PO TID for Infection, #15 TAB 0 Refills Prov: Adalberto Russell MD 07/05/17 Disposition: DISCHARGE HOME Condition: Stable Adalberto Russell MD Jul 05, 2017 20:33
== END 2017-07-05 21:08 | disposition home or self-care (01) ==
LOC: NEPD 18:17
DX: S61.250A Open bite of right index finger without damage to nail, initial encounter (principal); S30.811A Abrasion of abdominal wall, initial encounter; S00.81XA Abrasion of other part of head, initial encounter; S40.812A Abrasion of left upper arm, initial encounter; E10.9 Type 1 diabetes mellitus without complications; M79.7 Fibromyalgia; I10 Essential (primary) hypertension; W55.01XA Bitten by cat, initial encounter; Z23 Encounter for immunization
CPT/HCPCS: 90471; 90714